=== PATIENT | female | born 2000 ===

== ENCOUNTER 2025-06-21 11:45 | Outpatient (REF) | payer MEDICAID, SELFPAY ==
--- NOTE | ~2025-06-21 | XR_ITS ---
EXAMINATION: XR CHEST 2 VIEWS HISTORY: cough COMPARISON: There are no prior studies available for comparison. FINDINGS: PA and lateral views of the chest are submitted. The lungs are expanded and clear. There is no pleural effusion, pneumothorax, or pulmonary vascular congestion. The heart is normal in size. The bones are intact. XR/XR chest 2V IMPRESSION: Normal examination of the chest. Electronically signed by: Gino Duran MD 06/21/2025 01:21 PM [facility]
--- OUTSIDE RECORDS SUMMARY | 2025-06-21 13:00 | XMS_ITS | Encounter Summary ---
Author Organization [employer] Address [address] [place] [address] Care Team Providers Care Heat And Frost Insulator Name Role Phone Adenike Gunn MD Primary Care Provider [phone] Reason for Visit * Reason Comments Cough Sore Throat Encounter Details Date Type Department Care Team ([facility] st Contact Info) Description 06/21/2025 1:00 PM EST Office Visit [facility] [address] [place], [place] [phone] Michael Lauren MD [address] [place], [place] [phone] Influenza A Social History Tobacco Use Types Packs/Day Years Used Date Smoking Tobacco: Never Passive Smoke Exposure: Never Smokeless Tobacco: Never Tobacco Cessation:Counseling Given: Not Answered Alcohol Use Standard Drinks/Week Comments Never 0 (1 standard drink = 0.6 oz pur e alcohol) Comments Unknown Sex and Gender Information Value Date Recorded Sex Assigned at Female 04/29/2022 10:15 AM EDT Legal Sex Female 10:15 AM EDT Gender Identity Female 04/29/2022 10:15 AM EDT Sexual Orientation Straight 04/29/2022 10 :15 AM EDT documented as of this encounter Last Filed Vital Signs Vital Sign Reading Time Taken Comments Blood Pressure 136/74 06/21/2025 10:20 AM EST Pulse 102 06/21/2025 10:20 AM EST Temperature 36.8 C (98.2 F) 06/21/2025 10:20 AM EST Respiratory Rate 20 06/21/2025 10:2 0 AM EST Oxygen Saturation 95% 06/21/2025 10: 20 AM EST Inhaled Oxygen Concentration - - Weight 80.2 kg (176 lb 12.8 oz) 025 10:20 AM EST Height 160 cm (5' 3 ) 06/21/2025 10:20 AM EST Body Mass Index 31.32 06/21/2025 10:20 AM EST documented in this encounter Progress Notes * Michael Gao MD - 06/21/2025 1:00 PM EST FREDERIC Francis is a 24 y.o. female who presents for Cough and Sore Throat. Cough The current episode started in the past 7 days. The problem has been gradually worsening. The coughis Non-productive. Associated symptoms include nasal congestion and shortness of breath. Pertinent negatives include no chest pain, chills or fever. She has tried nothing for the symptoms. Review of Systems Constitutional: Negative for chills and fever. Respiratory: Positive for cough and shortness of breath. Cardiovascular: Negative for chest pain. Allergies[1] OBJECTIVE Vitals: 06/21/25 1020 BP: 136/74 BP Location: Right arm Patient Position: Sitting BP Cuff Size: Adult Pulse: 102 Resp: 20 Temp: 98.2 ??F (36.8 ??C) TempSrc: Oral SpO2: 95% Weight: 176 lb 12.8 oz (80.2 kg) Height: 5' 3 (1.6 m) Physical Exam Vitals reviewed. Constitutional: Appearance: Normal appearance. HENT: Head: Normocephalic and atraumatic. Right Ear: External ear normal. Left Ear: External ear normal. Nose: Nose normal. Mouth/Throat: Mouth: Mucous membranes are moist. Eyes: Conjunctiva/sclera: Conjunctivae normal. Cardiovascular: Rate and Rhythm: Normal rate and regular rhythm. Pulmonary: Effort: Pulmonary effort is normal. Breath sounds: Examination of the right-middle field reveals wheezing. Examination of the left-middle field reveals wheezing. Wheezing present. Skin: General: Skin is warm. Neurological: Mental Status: She is alert. Mental status is at baseline. Assessment/Plan Problem List Items Addressed This Visit Influenza A 24 yr old female with c/o non productive cough, associated with sob, and chest tightness. 2 of her kids were positive for Influenza A. She tested positive as well. On exam she is afebrile, pulse oxymetry fluctuates between 95-98%, lungs bilateral faint wheezing. Exam indicative of upper airway hyperreactivity due to viral illness (Influenza type A0 Plan: Nebulization here. Short prednisone taper, Albuterol MDI to be used PRN, Tamiflu x 5 days (BMP ordered ) , Chest x-ray Supportive measures F/u if no improvement or worsening Relevant Medications oseltamivir (Tamiflu) 75 MG capsule acetaminophen (Tylenol Extra Strength) 500 MG tablet benzocaine-menthol (Chloraseptic) 6-10 MG lozenge guaiFENesin (Robitussin) 100 MG/5ML liquid albuterol (2.5 MG/3ML) 0.083% nebulizer solution 2.5 mg (Completed) predniSONE (Deltasone) 20 MG tablet albuterol 108 (90 Base) MCG/ACT inhaler Other Relevant Orders POCT Rapid COVID Ag (Completed) Influenza A (ID NOW Rapid Molecular) (Completed) Influenza B (ID NOW Rapid Molecular) (Completed) POCT ID NOW Rapid Strep A manually resulted (Completed) XR Chest 2 Views Basic Metabolic Panel Future Appointments Date Time Provider Department Center 06/21/2025 1:00 PM [facility] 1 WALK-IN [facility] [1] No Known Allergies documented in this encounter Miscellaneous Notes * Assessment & Plan Note - Michael Gao MD - 06/21/2025 11:27 AM EST Associated Problem(s): Influenza A 24 yr old female with c/o non productive cough, associated with sob, and chest tightness. 2 of her kids were positive for Influenza A. She tested positive as well. On exam she is afebrile, pulse oxymetry fluctuates between 95-98%, lungs bilateral faint wheezing. Exam indicative of upper airway hyperreactivity due to viral illness (Influenza type A0 Plan: Nebulization here. Short prednisone taper, Albuterol MDI to be used PRN, Tamiflu x 5 days (BMP ordered ) , Chest x-ray Supportive measures F/u if no improvement or worsening documented in this encounter Plan of Treatment Scheduled Orders Name Type Priority Associated Diagnoses Orde r Schedule XR Chest 2 Views Imaging Routine Influenza A Ordered: 06/21/2025 Basic Metabolic Panel Lab Routine Influenza A Ordered: 06/21/2025 documented as of this encounter Procedures Procedure Name Priority Date/Time Associated Diagnosis Comments POCT INFLUENZA B (ID NOW RAPID MOLECULAR) Routine 06/21/2025 10:37 AM EST Influenza A POCT INFLUENZA A (ID NOW RAPID MOLECULAR) Routine 06/21/2025 10:37 AM EST Influenza A POC PATEL ID NOW STREP A Routine 06/21/2025 10:37 AM EST Influenza A POCT RAPID COVID ANTIGEN Routine 06/21/2025 10:37 AM EST Influenza A documented in this encounter Results * POCT ID NOW Rapid Strep A manually resulted (06/21/2025 10:37 AM EST) Rapid Strep A Screen Negative Negative, None Detected Swab 06/21/2025 10:3 7 AM EST Michael Gao MD POINT OF CARE TEST EN TER/EDIT ORDERABLES Final Result * Influenza B (ID NOW Rapid Molecular) (06/21/2025 10:37 AM EST) Pathologist [facility] Influenza B Negative Negative, Indeterminate [facility] Swab 06/21/2025 10:3 7 AM EST Michael Gao MD POINT OF CARE TEST EN TER/EDIT ORDERABLES Final Result [facility] [address] [place] [phone] * (ABNORMAL) Influenza A (ID NOW Rapid Molecular) (06/21/2025 10:37 AM EST) Influenza A Positive( A) Negative, Indeterminate [facility] Swab 06/21/2025 10:3 7 AM EST us Michael Gao MD POINT OF CARE TEST EN TER/EDIT ORDERABLES Final Result Performing Organization Address [facility]/ZIP Co de Phone Number [facility] [address] [place] [address] [phone] * POCT Rapid COVID Ag (06/21/2025 10:37 AM EST) Rapid COVID Ag Negative [facility] Swab 06/21/2025 10:3 7 AM EST Michael Gao MD POINT OF CARE TEST EN TER/EDIT ORDERABLES Final Result Performing Organization Address City/[facility] Co de Phone Number [facility] [address] [place] [phone] documented in this encounter Visit Diagnoses Diagnosis Influenza A Influenza with other respiratory manifestations documented in this encounter Administered Medications Inactive Administered Medications - up to 3 most recent administrations Medication Order MAR Action Action Date Dose Rate Site albuterol (2.5 MG/3ML) 0.083% nebulizer solution 2.5 mg 2.5 mg, Nebulization, Once, On Fri06/21/25 at 1130, For 1 doseIndications:Influenza A Given 06/21/2025 11:30 AM EST 2.5 mg documented in this encounter Care Teams Heat And Frost Insulator Relationship Specialty Start Date End Date Adenike Gunn MD [address] [place] [address] PCP - General Family Medicine 07/30/13 documented as of this encounter
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
--- OUTSIDE RECORDS SUMMARY | 2025-06-21 13:05 | XMS_ITS | Encounter Summary ---
Author Organization [employer] Address [address] [facility] [address] [place] [address] Care Team Providers Care Professor Of Music Name Role Phone Adenike Gunn MD Primary Care Provider [phone] Reason for Visit * Reason Onset Date Comments Referral 11/01/2022 Encounter Details Date Type Department Care Team ([facility] st Contact Info) Description 11/01/2022 Telephone [facility] [address] [place], [place] [phone] Adenike Gunn MD [address] [place] [address] Referral Social History Tobacco Use Types Packs/Day Years Used Date Smoking Tobacco: Never Passive Smoke Exposure: Never Smokeless Tobacco: Never Comments Unknown Sex and Gender Information Value Date Recorded Sex Assigned at Female 04/29/2022 10:15 AM EDT Legal Sex Female 10:15 AM EDT Gender Identity Female 04/29/2022 10:15 AM EDT Sexual Orientation Straight 04/29/2022 10 :15 AM EDT documented as of this encounter Miscellaneous Notes * Telephone Encounter - Rajan Hewitt - 11/01/2022 10:09 AM EDT Tc from pt requesting a [facility] Please contact pt at [phone] documented in this encounter Plan of Treatment Not on file documented as of this encounter Visit Diagnoses Not on filedocumented in this encounter Care Teams Professor Of Music Relationship Specialty Start Date End Date Adenike Gunn MD [address] [place] [address] PCP - General Family Medicine 07/30/13 documented as of this encounter
--- OUTSIDE RECORDS SUMMARY | 2025-06-21 13:05 | XMS_ITS | Encounter Summary ---
Author Organization [employer] Address [address] [facility] [address] [place] [address] Care Team Providers Care Landfill Attendant Name Role Phone Adenike Gunn MD Primary Care Provider [phone] Encounter Details Date Type Department Care Team (Latest Contact Info) Description 06/21/2025 Travel Social History Tobacco Use Types Packs/Day Years Used Date Smoking Tobacco: Never Passive Smoke Exposure: Never Smokeless Tobacco: Never Alcohol Use Standard Drinks/Week Comments Never 0 (1 standard drink = 0.6 oz pur e alcohol) Comments Unknown Sex and Gender Information Value Date Recorded Sex Assigned at Female 04/29/2022 10:15 AM EDT Legal Sex Female 10:15 AM EDT Gender Identity Female 04/29/2022 10:15 AM EDT Sexual Orientation Straight 04/29/2022 10 :15 AM EDT documented as of this encounter Plan of Treatment Not on file documented as of this encounter Visit Diagnoses Not on filedocumented in this encounter Care Teams Landfill Attendant Relationship Specialty Start Date End Date Adenike Gunn MD [address] [place] [address] PCP - General Family Medicine 07/30/13 documented as of this encounter
--- OUTSIDE RECORDS SUMMARY | 2025-06-21 13:05 | XMS_ITS | Encounter Summary ---
Author Organization [employer] Address [address] [facility] [address] [place] [address] Care Team Providers Care Hydrometallurgical Engineer Name Role Phone Adenike Gunn MD Primary Care Provider [phone] Encounter Details Date Type Department Care Team (Late st Contact Info) Description 03/25/2025 Orders Only [facility] [address] [place] [address] Provider, MD [place] Social History Tobacco Use Types Packs/Day Years Used Date Smoking Tobacco: Never Passive Smoke Exposure: Never Smokeless Tobacco: Never Alcohol Use Standard Drinks/Week Comments Never 0 (1 standard drink = 0.6 oz pur e alcohol) Comments Yes Sex and Gender Information Value Date Recorded Sex Assigned at Female 04/29/2022 10:15 AM EDT Legal Sex Female 10:15 AM EDT Gender Identity Female 04/29/2022 10:15 AM EDT Sexual Orientation Straight 04/29/2022 10 :15 AM EDT documented as of this encounter Plan of Treatment Not on file documented as of this encounter Procedures Procedure Name Priority Date/Time Associated Diagnosis Comments HM PAP/HPV Routine 08/09/2024 11:37 AM EST documented in this encounter Results * HM PAP/HPV (08/09/2024 11:37 AM EST) us Historical Provider HEALTH MAINTENANCE Final Result documented in this encounter Visit Diagnoses Not on filedocumented in this encounter Care Teams Hydrometallurgical Engineer Relationship Specialty Start Date End Date Adenike Gunn MD [address] [place] [address] PCP - General Family Medicine 07/30/13 documented as of this encounter
--- OUTSIDE RECORDS SUMMARY | 2025-06-21 13:05 | XMS_ITS | Encounter Summary ---
Author Organization [employer] Address [address] [facility] [address] [place] [address] Care Team Providers Care Radiology Nurse Name Role Phone Adenike Gunn MD Primary Care Provider [phone] Reason for Visit * Reason Onset Date Comments Nurse Triage 06/21/2025 Encounter Details Date Type Department Care Team (Late st Contact Info) Description 06/21/2025 Telephone [facility] MED[facility] [address] [place] [address] Adenike Gunn MD [address] [place] [address] Nurse Triage Social History Tobacco Use Types Packs/Day Years [...] encounter Miscellaneous Notes * Telephone Encounter - Genet Aguero RN - 06/21/2025 8:22 AM EST TC returned to pt who reports on Friday she developed a fever and felt like she had pain in her chest related to a very aggressive dry cough which is causing chest/rib discomfort. Patient reports that it feels as if she needs to cough up phlegm but hasn't been able to. She denies any other symptomsand reports OTC are not helping would like to be evlauted, pt is agreeable to come to walk in [place] this morning * Telephone Encounter - Jm Victoria - 06/21/2025 8:14 AM EST Symptom: Cough Outcome: Schedule an urgent appointment (within 1 hour) or talk to a nurse or provider soon Reason: Wheezing (high-pitched whistling sound) Please contact pt at [phone] documented in this encounter Plan of Treatment Not on file documented as of this encounter Visit Diagnoses Not on filedocumented in this encounter Care Teams Radiology Nurse Relationship Specialty Start Date End Date Adenike Gunn MD [address] [place] [phone] PCP - General Family Medicine 07/30/13 documented as of this encounter
--- OUTSIDE RECORDS SUMMARY | 2025-06-21 13:05 | XMS_ITS | Encounter Summary ---
Author Organization [employer] Address [address] [facility] [address] [place] [address] Care Team Providers Care Legal Operations Manager Name Role Phone Adenike Gunn MD Primary Care Provider [phone] Reason for Visit * Reason Onset Date Comments Referral 01/01/2023 Encounter Details Date Type Department Care Team (Late st Contact Info) Description 01/01/2023 Telephone [facility] [address] [place], [place] [id number] Adenike Gunn MD [address] [place], [place] [id number] Referral Social History Tobacco Use Types Packs/Day [...] encounter Miscellaneous Notes * Telephone Encounter - Svetlana Mello - 01/01/2023 1:45 PM EDT Tc from pt requesting a [facility]. States she hasn't seen a eye doctor in a while. Please contact pt at [phone] documented in this encounter Plan of Treatment Not on file documented as of this encounter Visit Diagnoses Not on filedocumented in this encounter Care Teams Legal Operations Manager Relationship Specialty Start Date End Date Adenike Gunn MD [address] [place], [place] [phone] PCP - General Family Medicine 07/30/13 documented as of this encounter
== END 2025-06-21 11:46 | disposition home or self-care (01) ==
LOC: HO.HHCX 11:45
PROVIDERS: Visit Provider Internal Medicine
DX: J10.1 Influenza due to other identified influenza virus with other respiratory manifestations (principal); R05.9 Cough, unspecified
CPT/HCPCS: 71046

== ENCOUNTER → 2025-06-21 11:47 | Outpatient (BNV) | payer MEDICAID, SELFPAY | PROVIDERS: Visit Provider Radiology Diagnostic Radiology | DX: R05.9 Cough, unspecified (principal) | CPT/HCPCS: 71046 ==